=== PATIENT | female | born 1985 | race Hispanic/Latino ===

== ENCOUNTER 2024-12-15 01:29 | Emergency (ER) | payer OTHER ==
--- OUTSIDE RECORDS SUMMARY | 2024-12-15 01:32 | XMS REPORT | Continuity of Care Document ---
Author Name Unknown Address [address] [facility] [address] [place] [address] Organization [facility] [place] Address [address] [facility] [address] [place] [address] Care Team Providers Care Anode Worker Name Role Phone URVASHI TIERNEY Attending Clinician Unavailable FRED SHANE Attending Clinician Unavailable SEAN RAY Attending Clinician Unavailable XIOMARA GONZALES Attending Clinician Jackie vailable LAB90 Attending Clinician Unavailable MD RANDELL Attending Clinician Unavailab ALISA Grimm Attending Clinician Unavailable LAB51 Attending Clinician Unavailable [id number] Attending Clinician Unavailable BRAN LANDON Attending Clinician Unavailable TERESA GORE Attending Clinician UnavailSYL Mercado Attending Clinician Unavailawais huertas Payers Payer Name Policy Type Policy Number Effective Date Expirati on Date Source [facility] [employer] 9 [id number] 2024 00:00:00 [facility] [id number] 2024 00:00:00 [employer] MP [employer] [employer]: HMO ON STANDARD 9 [id number] 2023 00:00:00 Problems Condition Name Condition Details Condition Category Status Onset Date Resolution Date Last Treatment Date Treating Clinician Comments Source Hyperthyro idism Hyperthyro idism Disease Active 04-26 00:00: 00 Zara lee Hypertensi on Hypertensi on Disease Active 01-24 00:00: 00 Zara lee Vitamin D deficiency Vitamin D deficiency Disease Active 05-03 00:00: 00 Zara Seybold - Externa l DM type 2 with diabetic mixed hyperlipid emia (multi HCC) DM type 2 with diabetic mixed hyperlipid emia (multi HCC) Disease Active 04-26 00:00: 00 Zara lee Social History Social Habit Start Date Stop Date Quantity Comments Source Sexual orientation Santiago aguayo Mouinka - External ASSERTION Not Zara Ribera - External Gender identity Latasha vigil [place] - External Alcoholic beverage intake 2024-05-17 00:00:00 2024-05-17 00:00:00 Ex-drinker (finding) Zara Ribera - External Tobacco use and exposure 2024-04-26 00:00:00 2024-04-26 00:00:00 Smokeless tobacco non-user Zara Ribera - External History of Social function 2024-04-10 00:00:00 2024-04-10 00:00:00 Zara Ribera - External Alcohol intake 2023-12-20 00:00:00 2023-12-20 00:00:00 Ex-drinker (finding) Zara Ribera - External Sex 2022-10-20 13:29:27 2022-10-20 13:29:27 Female (finding) Zara Ribera - External Sex assigned at 1985 00:00:00 1985 00:00:00 Zara Ribera - External Smoking Status Start Date Stop Date Source Never smoked tobacco Zara Ribera - External Medications Ordered Medication Name Filled Medication Name Start Date Stop Date Current Medication? Ordering Clinician Indication Dosage Frequency Signature (SIG) Comments Components Source Propylthiou racil 50 MG oral Tablet 2023-10 00:00: 00 Yes [id number] 50mg Q.[id number] 3D TAKE 1 TABLET(50 MG) BY MOUTH THREE TIMES DAILY Zara lee Propylthiou racil 50 MG oral Tablet 2023-10 00:00: 00 Yes [id number] 50mg Q.5D Take 1 tablet (50 mg total) by mouth 2 times daily. Zara lee Atorvastati n Calcium 20 MG oral Tablet 18 00:00: 00 Yes [id number] 3 20mg QD take 1 tablet by mouth every day Zara lee Metformin HCl 1000 MG oral Tablet 06-19 00:00: 00 Yes [id number] 3 TAKE 1 TABLET BY MOUTH IN THE MORNING AND IN THE EVENIGN WITH MEALS Zara lee OZEMPIC (0.25 or 0.5 mg/dose) 2 mg/3 mL SQ Solution Pen-Injecto r 06-19 00:00: 00 08-15 05:59 :00 No [id number] 3 .25mg Q1W Inject 0.25 mg into the skin once a week. Zara lee Dulaglutide (Trulicity) 0.75 MG/0.5ML subcutaneou s Solution Pen-injecto r 05-17 00:00: 00 Yes [id number] 3 .75mg Q1W Inject 0.75 mg into the skin once a week. Zara lee Propylthiou racil 50 MG oral Tablet 05-15 00:00: 00 07-08 00:00 :00 No [id number] 50mg Q.[id number] 3D TAKE 1 TABLET(50 MG) BY MOUTH THREE TIMES DAILY Zara lee hydroCHLORO thiazide 25 MG oral Tablet 04-26 00:00: 00 Yes [id number] 25mg QD TAKE 1 TABLET(25 MG) BY MOUTH DAILY Zara lee Trulicity 0.75 MG/0.5ML subcutaneou s Solution Pen-injecto r 04-26 00:00: 00 05-17 00:00 :00 No [id number] 3 .75mg Q1W Inject 0.75 mg into the skin once a week. Zara lee Propylthiou racil 50 MG oral Tablet 04-16 00:00: 00 Yes [id number] 50mg Q.59775616 [id number] 3D Take 1 tablet (50 mg total) by mouth 3 times daily. Zara lee Propylthiou racil 50 MG oral Tablet 04-15 00:00: 00 Yes 50mg Q.[id number] 3D Take 1 tablet (50 mg total) by mouth 3 times daily. Zara lee Acyclovir 800 MG oral Tablet 03-30 00:00: 00 04-26 00:00 :00 No TAKE 1 TABLET BY MOUTH TWICE DAILY FOR 21 DAYS Zara lee predniSONE (DELTASONE) 20 MG oral tablet 03-29 00:00: 00 04-26 00:00 :00 No 30mg QD Take 1.5 tablets (30 mg total) by mouth daily. Zara lee Dulaglutide (Trulicity) 1.5 MG/0.5ML subcutaneou s Solution Pen-injecto r 03-28 00:00: 00 04-26 00:00 :00 No [id number] 3 1.5mg Q1W Inject 1.5 mg into the skin once a week. Zara lee hydroCHLORO thiazide 25 MG oral Tablet 02-22 00:00: 00 Yes [id number] 25mg QD Take 1 tablet (25 mg total) by mouth daily. Zara lee hydroCHLORO thiazide 12.5 MG oral Capsule 02-15 00:00: 00 Yes [id number] 12.5mg Take 1 capsule (12.5 mg total) by mouth daily. Zara lee Trulicity 1.5 MG/0.5ML subcutaneou s Solution Pen-injecto r 02-15 00:00: 00 03-28 00:00 :00 No [id number] 3 1.5mg Q1W Inject 1.5 mg into the skin once a week. Zara lee Lisinopril 10 MG oral Tablet 01-24 00:00: 00 02-15 00:00 :00 No [id number] 10mg Take 1 tablet (10 mg total) by mouth daily. Zara lee Cholecalcif norm (Vitamin D) 50 MCG (2000 UT) oral Capsule 01-16 00:00: 00 04-26 00:00 :00 No [id number] 2000U QD Take 1 capsule (2,000 units total) by mouth daily. Zara lee Dulaglutide (Trulicity) 0.75 MG/0.5ML subcutaneou s Solution Pen-injecto r -17 00:00: 00 02-15 00:00 :00 No [id number] 3 .75mg Inject 0.75 mg into the skin once a week. Zara lee OZEMPIC (0.25 or 0.5 mg/dose) 2 mg/3 mL SQ Solution Pen-Injecto r 3-20 00:00: 00 02-14 04:59 :00 No [id number] 3 .25mg Inject 0.25 mg into the skin once a week. Zara lee GlipiZIDE 5 MG oral TABLET SR 24 HR 1-17 00:00: 00 Yes [id number] 3 5mg Take 1 tablet (5 mg total) by mouth daily. Zara lee Dulaglutide (Trulicity) 1.5 MG/0.5ML subcutaneou s Solution Pen-injecto r 2022-10 0-17 00:00: 00 12-19 00:00 :00 No [id number] 3 1.5mg Inject 1.5 mg into the skin once a week. Zraa lee Trulicity 1.5 MG/0.5ML subcutaneou s Solution Pen-injecto r 18 00:00: 00 Yes [id number] 3 1.5mg Inject 1.5 mg into the skin once a week. Zara lee Amoxicillin -Pot Clavulanate 875-125 MG oral Tablet -18 00:00: 00 Yes [id number] 1{tbl} Take 1 tablet by mouth 2 times daily. Zara lee Metformin HCl 1000 MG oral Tablet -15 00:00: 00 Yes [id number] 3 TAKE 1 TABLET BY MOUTH IN THE MORNING AND IN THE EVENING WITH MEALS Zara lee Dulaglutide (Trulicity) 0.75 MG/0.5ML subcutaneou s Solution Pen-injecto r 05-23 00:00: 00 06-19 00:00 :00 No [id number] 3 .75mg Inject 0.75 mg into the skin once a week. Zara lee Metformin HCl 1000 MG oral Tablet 05-03 00:00: 00 Yes [id number] 3 1000mg Take 1 tablet (1,000 mg total) by mouth in the morning and 1 tablet (1,000 mg total) in the evening. Take with meals. Zara lee Trulicity 0.75 MG/0.5ML subcutaneou s Solution Pen-injecto r 05-03 00:00: 00 Yes [id number] 3 .75mg Inject 0.75 mg into the skin once a week Zara lee Cholecalcif norm (Vitamin D3) 1.25 MG (45816 UT) oral Capsule 05-03 00:00: 00 01-16 00:00 :00 No [id number] 1{capsu le} Take 1 capsule by mouth once a week Zara lee Atorvastati n Calcium 20 MG oral Tablet 04-26 09:01: 04 04-26 00:00 :00 No 20mg Take 1 tablet (20 mg total) by mouth daily Zara lee Metformin HCl 850 MG oral Tablet 04-26 08:49: 36 Yes 850mg Take 1 tablet (850 mg total) by mouth in the morning and 1 tablet (850 mg total) in the evening. Take with meals. Zara lee Atorvastati n Calcium 20 MG oral Tablet 04-26 00:00: 00 Yes [id number] 3 20mg QD Take 1 tablet (20 mg total) by mouth daily Zara lee Norgestimat e-Ethinyl Estradiol (Tri-Sprint ec) 0.18/0.215/ 0.25 MG-35 MCG oral Tablet 04-26 00:00: 00 04-10 00:00 :00 No [id number] 1{tbl} QD Take 1 tablet by mouth daily Zara Seybold - Externa l Vital Signs Vital Name Observation Time Observation Value Comments S ource Systolic blood pressure 2024-05-17 14:33:00 140 mm[Hg] Zara Seybo ld - External Diastolic blood pressure 2024-05-17 14:33:00 74 mm[Hg] Zara Seybo ld - External Heart rate 2024-05-17 14:33:00 100 /min Kelse y Seybold - External Body temperature 2024-05-17 14:33:00 36.56 Sraita Zara Seybold - External Respiratory rate 2024-05-17 14:33:00 14 /min Zara Seybold - External Body height 2024-05-17 14:33:00 165.1 cm Latahsa ey Seybold - External Body weight 2024-05-17 14:33:00 95.255 kg Latasha ey Seybold - External BMI 2024-05-17 14:33:00 34.95 kg/m2 Latasha ey Seybold - External Systolic blood pressure 2024-05-07 16:32:00 132 mm[Hg] Zara Seybo ld - External Diastolic blood pressure 2024-05-07 16:32:00 84 mm[Hg] Zara Seybo ld - External Heart rate 2024-05-07 16:32:00 91 /min Kelse y Seybold - External Body temperature 2024-05-07 16:32:00 36.83 Sarita Zara Seybold - External Respiratory rate 2024-05-07 16:32:00 18 /min Zara Seybold - External Body height 2024-05-07 16:32:00 165.1 cm Latasha ey Seybold - External Body weight 2024-05-07 16:32:00 94.62 kg Latasha ey Seybold - External BMI 2024-05-07 16:32:00 34.71 kg/m2 Latasha ey Seybold - External Systolic blood pressure 2024-05-06 14:40:00 137 mm[Hg] Zara Seybo ld - External Diastolic blood pressure 2024-05-06 14:40:00 83 mm[Hg] Zara Seybo ld - External Heart rate 2024-05-06 14:40:00 98 /min Kelse y Seybold - External Body temperature 2024-05-06 14:40:00 36.89 Sarita Zara Seybold - External Respiratory rate 2024-05-06 14:40:00 18 /min Zara Seybold - External Body height 2024-05-06 14:40:00 165.1 cm Latasha ey Seybold - External Body weight 2024-05-06 14:40:00 93.441 kg Latasha ey Seybold - External BMI 2024-05-06 14:40:00 34.28 kg/m2 Latasha ey Seybold - External Systolic blood pressure 2024-04-26 14:53:00 128 mm[Hg] Zara Seybo ld - External Diastolic blood pressure 2024-04-26 14:53:00 78 mm[Hg] Zara Seybo ld - External Heart rate 2024-04-26 14:53:00 93 /min Kelse y Seybold - External Body temperature 2024-04-26 14:53:00 36.56 Sarita Zara Seybold - External Respiratory rate 2024-04-26 14:53:00 15 /min Zara Seybold - External Body height 2024-04-26 14:53:00 165.1 cm Latasha ey Seybold - External Body weight 2024-04-26 14:53:00 93.441 kg Latasha ey Seybold - External BMI 2024-04-26 14:53:00 34.28 kg/m2 Latasha ey Seybold - External Systolic blood pressure 2024-04-15 14:53:00 130 mm[Hg] Zara Seybo ld - External Diastolic blood pressure 2024-04-15 14:53:00 80 mm[Hg] Zara Seybo ld - External Heart rate 2024-04-15 14:53:00 94 /min Kelse y Seybold - External Respiratory rate 2024-04-15 14:53:00 16 /min Zara Seybold - External Body height 2024-04-15 14:53:00 165.1 cm Latasha ey Seybold - External Body weight 2024-04-15 14:53:00 91.627 kg Latasha ey Seybold - External BMI 2024-04-15 14:53:00 33.61 kg/m2 Latasha ey Seybold - External Systolic blood pressure 2024-04-10 15:03:00 135 mm[Hg] Zara Seybo ld - External Diastolic blood pressure 2024-04-10 15:03:00 83 mm[Hg] Zara Seybo ld - External Heart rate 2024-04-10 15:03:00 80 /min Kelse y Seybold - External Body temperature 2024-04-10 15:03:00 36.72 Sarita Zara Seybold - External Body height 2024-04-10 15:03:00 165.1 cm Latasha ey Seybold - External Body weight 2024-04-10 15:03:00 93.26 kg Latasha ey Seybold - External BMI 2024-04-10 15:03:00 34.21 kg/m2 Latasha ey Seybold - External Systolic blood pressure 2024-03-28 19:56:00 126 mm[Hg] Zara Seybo ld - External Diastolic blood pressure 2024-03-28 19:56:00 74 mm[Hg] Zara Seybo ld - External Heart rate 2024-03-28 19:56:00 88 /min Kelse y Seybold - External Body temperature 2024-03-28 19:56:00 36.89 Sarita Zara Seybold - External Respiratory rate 2024-03-28 19:56:00 18 /min Zara Seybold - External Body height 2024-03-28 19:56:00 165.1 cm Latasha ey Seybold - External Body weight 2024-03-28 19:56:00 92.987 kg Latasha ey Seybold - External BMI 2024-03-28 19:56:00 34.11 kg/m2 Latasha ey Seybold - External Oxygen saturation in Arterial blood by Pulse oximetry 2024-03-28 19:56:00 99 /min Zara Seybo ld - External Systolic blood pressure 2024-02-28 15:05:00 137 mm[Hg] Zara Seybo ld - External Diastolic blood pressure 2024-02-28 15:05:00 84 mm[Hg] Zara Seybo ld - External Heart rate 2024-02-28 15:05:00 85 /min Kelse y Seybold - External Respiratory rate 2024-02-28 15:05:00 16 /min Zara Seybold - External Body height 2024-02-28 15:05:00 165.1 cm Latasha ey Seybold - External Body weight 2024-02-28 15:05:00 91.173 kg Latasha ey Seybold - External BMI 2024-02-28 15:05:00 33.45 kg/m2 Latasha ey Seybold - External Systolic blood pressure 2024-02-16 16:03:00 146 mm[Hg] Zara Seybo ld - External Diastolic blood pressure 2024-02-16 16:03:00 84 mm[Hg] Zara Seybo ld - External Heart rate 2024-02-16 16:03:00 81 /min Kelse y Seybold - External Body temperature 2024-02-16 16:03:00 36.28 Sarita Zara Seybold - External Body height 2024-02-16 16:03:00 165.1 cm Latasha ey Seybold - External Body weight 2024-02-16 16:03:00 90.266 kg Latasha ey Seybold - External BMI 2024-02-16 16:03:00 33.12 kg/m2 Latasha ey Seybold - External Systolic blood pressure 2024-01-17 15:55:00 144 mm[Hg] Zara Seybo ld - External Diastolic blood pressure 2024-01-17 15:55:00 68 mm[Hg] Zara Seybo ld - External Heart rate 2024-01-17 15:50:00 97 /min Kelse y Seybold - External Body temperature 2024-01-17 15:50:00 36.61 Sarita Zara Seybold - External Respiratory rate 2024-01-17 15:50:00 15 /min Zara Seybold - External Body height 2024-01-17 15:50:00 165.1 cm Latasha ey Seybold - External Body weight 2024-01-17 15:50:00 92.08 kg Latasha ey Seybold - External BMI 2024-01-17 15:50:00 33.78 kg/m2 Latasha ey Seybold - External Systolic blood pressure 2023-12-20 14:06:00 130 mm[Hg] Zara Seybo ld - External Diastolic blood pressure 2023-12-20 14:06:00 78 mm[Hg] Zara Seybo ld - External Heart rate 2023-12-20 14:06:00 94 /min Kelse y Seybold - External Body temperature 2023-12-20 14:06:00 37.22 Sarita Zara Seybold - External Respiratory rate 2023-12-20 14:06:00 18 /min Zara Seybold - External Body height 2023-12-20 14:06:00 165.1 cm Latasha ey Seybold - External Body weight 2023-12-20 14:06:00 93.214 kg Latasha ey Seybold - External BMI 2023-12-20 14:06:00 34.20 kg/m2 Latasha ey Seybold - External Oxygen saturation in Arterial blood by Pulse oximetry 2023-12-20 14:06:00 99 /min Zara Seybo ld - External Systolic blood pressure 2023-10-18 15:19:00 132 mm[Hg] Zara Seybo ld - External Diastolic blood pressure 2023-10-18 15:19:00 70 mm[Hg] Zara Seybo ld - External Heart rate 2023-10-18 15:19:00 90 /min Kelse y Seybold - External Body temperature 2023-10-18 15:19:00 36.17 Sarita Zara Seybold - External Respiratory rate 2023-10-18 15:19:00 14 /min Zara Seybold - External Body height 2023-10-18 15:19:00 165.1 cm Latasha ey Seybold - External Body weight 2023-10-18 15:19:00 93.441 kg Latasha ey Seybold - External BMI 2023-10-18 15:19:00 34.28 kg/m2 Latasha ey Seybold - External Systolic blood pressure 2023-07-18 15:01:00 144 mm[Hg] Zara Seybo ld - External Diastolic blood pressure 2023-07-18 15:01:00 74 mm[Hg] Zara Seybo ld - External Heart rate 2023-07-18 15:01:00 96 /min Kelse y Seybold - External Body temperature 2023-07-18 15:01:00 36.11 Sarita Zara Seybold - External Respiratory rate 2023-07-18 15:01:00 15 /min Zara Seybold - External Body height 2023-07-18 15:01:00 165.1 cm Latasha ey Seybold - External Body weight 2023-07-18 15:01:00 95.709 kg Latasha ey Seybold - External BMI 2023-07-18 15:01:00 35.11 kg/m2 Latasha ey Seybold - External Systolic blood pressure 2023-06-19 15:03:00 144 mm[Hg] Zara Seybo ld - External Diastolic blood pressure 2023-06-19 15:03:00 76 mm[Hg] Zara Seybo ld - External Heart rate 2023-06-19 15:03:00 107 /min Kelse y Seybold - External Body temperature 2023-06-19 15:03:00 36.56 Sarita Zara Seybold - External Respiratory rate 2023-06-19 15:03:00 14 /min Zara Seybold - External Body height 2023-06-19 15:03:00 165.1 cm Latasha ey Seybold - External Body weight 2023-06-19 15:03:00 97.523 kg Latasha ey Seybold - External BMI 2023-06-19 15:03:00 35.78 kg/m2 Latasha ey Seybold - External Systolic blood pressure 2023-05-18 19:55:00 161 mm[Hg] Zara Seybo ld - External Diastolic blood pressure 2023-05-18 19:55:00 82 mm[Hg] Zara Seybo ld - External Heart rate 2023-05-18 19:55:00 80 /min Kelse y Seybold - External Body temperature 2023-05-18 19:55:00 36.61 Sarita Zara Seybold - External Respiratory rate 2023-05-18 19:55:00 15 /min Zara Seybold - External Body height 2023-05-18 19:55:00 165.1 cm Latasha ey Seybold - External Body weight 2023-05-18 19:55:00 99.791 kg Latasha ey Seybold - External BMI 2023-05-18 19:55:00 36.61 kg/m2 Latasha vigil Seybold - External Oxygen saturation in Arterial blood by Pulse oximetry 2023-05-18 19:55:00 99 /min Zara Clinton ld - External Systolic blood pressure 2023-04-26 13:44:00 116 mm[Hg] Zara Clinton ld - External Diastolic blood pressure 2023-04-26 13:44:00 88 mm[Hg] Zara Clinton ld - External Heart rate 2023-04-26 13:44:00 66 /min Nevaeh y Mounika - External Body temperature 2023-04-26 13:44:00 36.72 Sarita Zara Ribera - External Respiratory rate 2023-04-26 13:44:00 16 /min Zara Ribera - External Body height 2023-04-26 13:44:00 165.1 cm Latasha vigil Seybold - External Body weight 2023-04-26 13:44:00 99.247 kg Latasha vigil Seybold - External BMI 2023-04-26 13:44:00 36.41 kg/m2 Latasha ey Seybold - External Encounters Start Date/Time End Date/Time Encounter Type Admission Type Attending [facility] Care Department Encounter ID Source 2024-12-31 09:30:00 2024-12-31 09:30:00 Outpatient URVASHI TIERNEY [id number] Zara Ribera 2024-12-10 08:30:00 2024-12-10 08:30:00 Outpatient URVASHI TIERNEY [id number] Zara Ribera 2024-12-03 10:00:00 2024-12-03 10:00:00 Outpatient FRED SHANE [id number] Zara maurilio 2024-11-18 09:00:00 2024-11-18 09:00:00 Outpatient URVASHI TIERNEY [id number] Zara Ribera 2024-10-23 11:30:00 2024-10-23 11:30:00 Outpatient SEAN RAY [id number] Zara Ribera 2024-10-23 11:30:00 2024-10-23 11:30:00 Outpatient FLOR[id number] [facility] 2024-09-02 09:45:00 2024-09-02 09:45:00 Outpatient FLOR, SEAN ZARA CLANCY [id number] [facility] 2024-08-23 10:15:00 2024-08-23 10:15:00 Outpatient FLOR, SEAN ZARA CLANCY [id number] [facility] 2024-08-22 00:00:00 2024-08-22 00:00:00 Outpatient FLOR, SEAN ZARA CLANCY [id number] [facility] 2024-08-21 16:15:00 2024-08-21 16:15:00 Outpatient [facility], XIOMARA CLANCY [id number] [facility] 2024-08-20 08:35:00 2024-08-20 08:35:00 Outpatient LAB90 [facility]ARA CLANC[facility] [id number] [facility] 2024-07-31 00:00:00 2024-07-31 00:00:00 Outpatient MD ZARA IBRAHIM [id number] [facility] 2024-07-25 00:00:00 2024-07-25 00:00:00 Outpatient FLOR, KARLAPIEDAD CLANCY [id number] [facility] 2024-07-23 10:00:00 2024-07-23 10:00:00 Outpatient VU, ALISA CLANCY [id number] [facility] 2024-07-08 10:00:00 2024-07-08 10:00:00 Outpatient FLOR, SEAN CLANCY [id number] [facility] 2024-06-19 00:00:00 2024-06-19 00:00:00 Outpatient NIALL, URVASHI CLANCY [id number] Zara Seybold 2024-06-18 00:00:00 2024-06-18 00:00:00 Outpatient URVASHI TIERNEY [id number] Zara Seybold 2024-06-13 00:00:00 2024-06-13 00:00:00 Outpatient FLOR, SEAN CLANCY [id number] Zara Seybold 2024-06-12 11:20:00 2024-06-12 11:20:00 Outpatient ZARA CLANCY [id number] Zara Seybold 2024-06-12 10:00:00 2024-06-12 10:00:00 Outpatient ZARA CLANCY [id number] Zara Seybold 2024-06-12 10:00:00 2024-06-12 10:00:00 Outpatient ZARA CLANCY [id number] Zara Seybold 2024-06-12 09:45:00 2024-06-12 09:45:00 Outpatient ZARA CLANCY [id number] Zara Seybold 2024-06-12 00:00:00 2024-06-12 00:00:00 Outpatient SEAN RAY ZARA CLANCY [id number] Zara Seybold 2024-06-07 08:05:00 2024-06-07 08:05:00 Outpatient LAB90 ZARA CLANCY [id number] Zara Seybold 2024-05-30 00:00:00 2024-05-30 00:00:00 Outpatient ZARA CLANCY [id number] Zara Seybold 2024-05-28 00:00:00 2024-05-28 00:00:00 Outpatient MD ZARA IBRAHIM [id number] Zara Seybold 2024-05-21 13:45:00 2024-05-21 13:45:00 Outpatient ZARA CLANCY [id number] Zara Seybold 2024-05-21 13:30:00 2024-05-21 13:30:00 Outpatient ZARA CLANCY [id number] Zara Seybold 2024-05-20 00:00:00 2024-05-20 00:00:00 Outpatient ZARA CLANCY [id number] Zara Seybold 2024-05-17 10:00:00 2024-05-17 10:00:00 Outpatient URVASHI TIERNEY [id number] Zara Seybold 2024-05-17 00:00:00 2024-05-17 00:00:00 Outpatient XI[facility]ARA JUARES [id number] [facility] 2024-05-15 00:00:00 2024-05-15 00:00:00 Outpatient SEAN RAY ZARA CLANCY [id number] Zara Seybold 2024-05-07 11:15:00 2024-05-07 11:15:00 Outpatient [facility], XIOMARA ZARA CLANCY [id number] Zara Seybold 2024-05-07 08:45:00 2024-05-07 08:45:00 Outpatient [facility], XIOMARA ZARA ZARA [id number] [facility] 2024-05-06 10:15:00 2024-05-06 10:15:00 Outpatient FLORSEAN ZARA CLANCY [id number] [facility] 2024-04-30 09:30:00 2024-04-30 09:30:00 Outpatient LAB90 ZARA CLANCY [id number] [facility] 2024-04-29 00:00:00 2024-04-29 00:00:00 Outpatient SEAN RAY ZARA CLANCY [id number] [facility] 2024-04-26 10:50:00 2024-04-26 10:50:00 Outpatient LAB90 ZARA CLANCY [id number] [facility] 2024-04-26 10:00:00 2024-04-26 10:00:00 Outpatient NIALL URVASHI CLANCY [id number] [facility] 2024-04-25 00:00:00 2024-04-25 00:00:00 Outpatient DEISIAnish URVASHI CLANCY [id number] Zara Seybold 2024-04-22 10:30:00 2024-04-22 10:30:00 Outpatient ZARA CLANCY [id number] Zara Seybold 2024-04-19 00:00:00 2024-04-19 00:00:00 Outpatient SEAN RAY ZARA CLANCY [id number] Zara Seybold 2024-04-16 00:00:00 2024-04-16 00:00:00 Outpatient FLORKARLAPIEDAD CLANCY [id number] Zara Seybold 2024-04-15 11:15:00 2024-04-15 11:15:00 Outpatient LAB51 ZARA CLANCY [id number] Zara Seybold 2024-04-15 10:15:00 2024-04-15 10:15:00 Outpatient SEAN RAY ZARA CLANCY [id number] Zara Seybold 2024-04-10 10:50:00 2024-04-10 10:50:00 Outpatient [id number] ZARA CLANCY [id number] Zara Seybold 2024-04-10 09:45:00 2024-04-10 09:45:00 Outpatient [facility] ZARA CLANCY [id number] Zara Seybold 2024-04-01 00:00:00 2024-04-01 00:00:00 Outpatient BRAN LANDON ZARA CLANCY [id number] Zara Seybold 2024-04-01 00:00:00 2024-04-01 00:00:00 Outpatient [facility]ASHI TIERNEY [id number] [facility] 2024-03-28 15:45:00 2024-03-28 15:45:00 Outpatient LAB90 ZARA CLANCY [id number] Zara Seybold 2024-03-28 15:00:00 2024-03-28 15:00:00 Outpatient URVASHI TIERNEY [id number] [facility] 2024-03-21 00:00:00 2024-03-21 00:00:00 Outpatient MD ZARA IBRAHIM [id number] Zara Seybold 2024-03-20 14:15:00 2024-03-20 14:15:00 Outpatient ZARA CLANCY [id number] Zara Seybold 2024-03-13 08:35:00 2024-03-13 08:35:00 Outpatient LAB90 ZARA CLANCY [id number] Zara Seybold 2024-03-04 00:00:00 2024-03-04 00:00:00 Outpatient MD ZARA IBRAHIM [id number] Zara Seybchandni 2024-02-28 11:30:00 2024-02-28 11:30:00 Outpatient [id number] ZARA OQUENDOSEY [id number] Zara Ribera 2024-02-28 10:45:00 2024-02-28 10:45:00 Outpatient VASILERED CORREIAXIOMARA ZARA CLANCY [id number] Zara Beardybchandni 2024-02-24 00:00:00 2024-02-24 00:00:00 Outpatient HUNDL, URVASHI CLANCY [id number] Zara Ribera 2024-02-23 12:00:00 2024-02-23 12:00:00 Outpatient SOFÍATERESA ZARA CLANCY [id number] Zara Beardybchandni 2024-02-23 00:00:00 2024-02-23 00:00:00 Outpatient HUNDL, [facility]ASH[facility] CLANC[facility] [id number] [facility] 2024-02-16 11:45:00 2024-02-16 11:45:00 Outpatient LABShakira ZARA CLANCY [id number] Zara Ribera 2024-02-16 11:00:00 2024-02-16 11:00:00 Outpatient HUNDL, URVASHI CLANCY [id number] Zara Ribera 2024-01-24 00:00:00 2024-01-24 00:00:00 Outpatient HUNDL, U[facility]ASHI CLANCY [id number] [facility]24-01-17 11:00:00 2024-01-17 11:00:00 Outpatient HUNDAnish, URVASHI CLANCY [id number] Zara Beardybchandni 2024-01-08 00:00:00 2024-01-08 00:00:00 Outpatient HUNDL, URVASHI CLANCY [id number] [facility] 2023-12-20 09:30:00 2023-12-20 09:30:00 Outpatient HUNDL, URVASHI CLANCY [id number] [facility] 2023-11-27 11:03:51 2023-11-27 11:03:51 Outpatient [facility] [id number] Nish Fitch 2023-10-24 10:15:00 2023-10-24 10:15:00 Outpatient SYL SINCLAIR [id number] Zaranichole Ribera 2023-10-18 09:30:00 2023-10-18 09:30:00 Outpatient HUNDL, URVASHI ZARA CLANCY [id number] Zara Ribera 2023-10-13 09:00:00 2023-10-13 09:00:00 Outpatient LAB90 ZARA CLANCY [id number] Zara Ribera 2023-08-03 00:00:00 2023-08-03 00:00:00 Outpatient PREZAS, BRAN ZARA CLANCY [id number] Zara Ribera 2023-08-01 00:00:00 2023-08-01 00:00:00 Outpatient HUNDL, URVASHI CLANCY [id number] Zara Ribera 2023-07-25 08:00:00 2023-07-25 08:00:00 Outpatient VU, ALISA CLANCY [id number] Zara Ribera 2023-07-18 10:30:00 2023-07-18 10:30:00 Outpatient HUNDL, URVASHI CLANCY [id number] [facility] 2023-07-12 08:40:00 2023-07-12 08:40:00 Outpatient LAB90 ZARA CLANCY [id number] Zara Ribera 2023-06-19 11:15:00 2023-06-19 11:15:00 Outpatient LAB90 ZARA CLANCY [id number] Zara Ribera 2023-06-19 10:30:00 2023-06-19 10:30:00 Outpatient HUNDL, URVASHI CLANCY [id number] Zara Ribera 2023-06-13 00:00:00 2023-06-13 00:00:00 Outpatient HUNDL, URVASHI CLANCY [id number] Zara Beardybchandni 2023-05-19 00:00:00 2023-05-19 00:00:00 Outpatient HUNDAnish, URVASHI CLANCY [id number] Zara ybchandni 2023-05-18 15:45:00 2023-05-18 15:45:00 Outpatient LAB90 ZARA CLANCY [id number] Zara ybchandni 2023-05-18 15:00:00 2023-05-18 15:00:00 Outpatient URVASHI TIERNEY [id number] Zara Ribera 2023-05-18 00:00:00 2023-05-18 00:00:00 Outpatient URVASHI ITERNEY [id number] Zara Ribera 2023-05-03 00:00:00 2023-05-03 00:00:00 Outpatient URVASHI TIERNEY [id number] Zara Ribera 2023-04-26 09:45:00 2023-04-26 09:45:00 Outpatient LAB90 ZARA CLANCY [id number] Zara Ribera 2023-04-26 09:00:00 2023-04-26 09:00:00 Outpatient URVASHI TIERNEYSEY [id number] Zara Beardsaechandni Notes Date/Time Note Provider Source 2024-05-17 09:35:08 Chief Complaint Patient presents with Diabetes Diabetic follow up and lab results Khloe Lipscomb MA II [facility] 2024-05-07 11:33:10 Chief Complaint Patient presents with OTHER Discuss u/s results CHELI Bravo [facility] 2024-04-26 09:57:16 Chief Complaint Patient presents with Physical Patient is fasting. No other issues to discuss Khloe Lipscomb MA II T [facility] 2024-04-15 09:53:45 Chief Complaint Patient presents with Thyroid Problem Follow-up [facility] 2024-04-10 09:58:40 PATIENT IS IN ROOM: 313 PHQ questionnaire score: 0 ERNESTO questionnaire score: 0 No Known Allergies Patient agreed to STD testing today. Patient has no complaints or concerns for today's visit. control: none LMP Dates from Last 1 Encounters: LMP: 01/10/2024 No results found for: "PAP" [facility] 2024-03-28 15:00:05 Chief Complaint Patient presents with Follow-up Lab work was done and thyroid was elevated .Yoko Cadet LVN [facility] 2024-02-28 10:06:12 Chief Complaint Patient presents with Infertility Pt got referred by her PCP to speak about infertility. CHELI Velasquez [facility] 2024-02-16 11:05:20 Chief Complaint Patient presents with Diabetes Diabetic follow up Blood Pressure Follow up on blood pressure Khloe Lipscomb MA II Khloe Lipscomb MA, II [facility] 2024-01-17 10:53:13 Chief Complaint Patient presents with Diabetes 4 week diabetic follow up Khloe Lipscomb MA II Khloe Lipscomb MA, II [facility] 2023-12-20 09:11:20 Chief Complaint Patient presents with Follow-up 2 month follow up Diabetes. Blood sugars have been averaging in 's Yoko Cadet LVN [facility] 2023-10-18 09:21:43 Chief Complaint Patient presents with Diabetes Diabetic follow up Khloe Lipscomb MA II [facility] Khloe Lipscomb MA, II [facility] 2023-06-19 10:06:07 Formatting of this n ote is different from the original. Chief Complaint Patient presents with Diabetes Follow up on diabetes Dental Problem Toothache that started over the weekend Khloe Lipscomb MA II Khloe Lipscomb MA, II [facility] 2023-04-26 08:49:38 Formatting of this n ote is different from the original. Chief Complaint Patient presents with Physical Krystle Kaur CMA I [facility]
[2024-12-15 03:13] LABS: Absolute Basophils 0.1 K/uL (0-0.5); Absolute Lymphocytes (CBC) 2.6 K/uL (0.7-4.9); Absolute Monocytes 0.8 K/uL (0.1-1.3); Absolute Neutrophil 13.7 K/uL (1.8-8.0); Basophils % 0.4 % (0-1.3); Eosinophils % 0.2 % (0-4.4); Hematocrit 37.9 % (36.0-45.0); Hemoglobin 12.4 g/dL (12.0-15.0); MCH 26.5 pg (27.0-35.0); MCHC 32.8 g/dL (32.0-36.0); MCV 80.7 fL (80-100); MPV 9.2 fL (7.6-11.3); Monocytes % 4.5 % (3.3-12.3); Neutrophils % 79.9 % (41.7-73.7); Platelets 323 thou/uL (152-406); RBC Red Blood Cell Count 4.69 M/uL (3.86-4.86); Red Cell Distribution Width 15.1 % (12.1-15.2)
[2024-12-15 04:17] LABS: Anion Gap 12.8 mEq/L (5.0-15.0)
--- NOTE | 2024-12-15 04:29 | RAD REPORT ---
PROCEDURE: US , Transvaginal CLINICAL INDICATION: The patient is 39 years old and is Female; 6w preg, vaginal bleeding Bed: TECHNIQUE: Real-time transvaginal obstetrical ultrasound of the maternal pelvis and a first trimester with image documentation. Transvaginal imaging was used for better evaluation of the fetus and adnexa. COMPARISON: No relevant prior studies available. FINDINGS: GESTATION: No IUP identified. PLACENTA/AMNIOTIC FLUID: Cannot be adequately evaluated due to the early gestational age. UTERUS/CERVIX: Patient appears to have duplicated and endometrial cavities, with heterogenous avasc ular material demonstrated within the distended left-sided cervical canal. Right-sided endometrium measures up to 0.5 cm in thickness. Trace anechoic fluid demonstrated in the right cervical canal. Left-sided endometrium is thickened, measuring up to 1.8 cm, with heterogenous appearance. No myometrial mass. The uterus measures 9.3 x 4.3 x 6.7 cm. OVARIES: Left ovary is nonvisualized. No mass. The right ovary measures 2.4 x 3.3 x 2.5 cm with a volume of 10.4 ml. FREE FLUID: No free fluid. IMPRESSION: 1. 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 2. No IUP identified. Thickened heterogenous appearance of the left endometrium and heterogenous ma terial in the left cervical canal, favoring blood products versus products of conception. Correlation with beta hCG levels recommended. If positive, findings favor a failed , though cannot exclude a nonvisualized ectopic . Recommend further characterization with short-term follow-up pelvic ultrasound and trending beta hCG levels. Electronically signed by: Sascha Stauffer MD 12/15/2024 04:21 AM CDT Due to temporary technical issues with the PACS/CheckiO reporting system, reports are being sign ed by the in-house radiologist without review as a courtesy to ensure prompt reporting the interpreting rad iologist is fully responsible for the content of the report. Transcribed Date/Time: 12/15/2024 4:29 AM
[2024-12-15 04:33] LABS: Potassium 3.8 mEq/L (3.5-5.1)
--- NOTE | 2024-12-15 04:44 | ER ---
Nurse's Notes [facility] Name: Laura Gongora Age: 39 yrs Sex: Female : 1985 Arrival Date: 12/15/2024 Time: 01:29 Bed 13 Private MD: Diagnosis: Concern for Miscarriage Presentation: 12/15 01:50 Chief complaint: Patient states: heavy vaginal bleeding since 2200. Coronavirus screen: lg3 Client denies travel out of the [place] in the last 14 days. At this time, the client does not indicate any symptoms associated with coronavirus-19. Ebola Screen: No symptoms or risks identified at this time. Initial Sepsis Screen: Does the patient meet any 2 criteria? No. Patient's initial sepsis screen is negative. Does the patient have a suspected source of infection? No. Patient's initial sepsis screen is negative. Risk Assessment: Do you want to hurt yourself or someone else? Patient reports no desire to harm self or others. Onset of symptoms was December 14, 2024. 01:50 Method Of Arrival: Ambulatory lg3 01:50 Acuity: JUNG 3 lg3 Triage Assessment: 03:11 General: Appears in no apparent distress. comfortable, Behavior is calm, cooperative. lg3 Pain: Denies pain. EENT: No deficits noted. No signs and/or symptoms were reported regarding the EENT system. Neuro: No deficits noted. Arita Agitation-Sedation Scale (RASS): 0 - Alert and Calm Level of Consciousness is awake, alert, obeys commands, Oriented to person, place, time, situation. Cardiovascular: No deficits noted. Denies chest pain, shortness of breath, Capillary refill < 3 seconds Clubbing of nail beds is absent JVD is absent Patient's skin is warm and dry. Respiratory: No deficits noted. Airway is patent Respiratory effort is even, unlabored, Respiratory pattern is regular, symmetrical. GI: No deficits noted. Abdomen is round non-distended, Patient currently denies pain. : Reports vaginal bleeding that is heavy flow. Derm: No deficits noted. No signs and/or symptoms reported regarding the dermatologic system. Skin is intact, is healthy with good turgor, Skin is dry, Skin is normal, Skin temperature is warm. Musculoskeletal: No deficits noted. No signs and/or symptoms reported regarding the musculoskeletal system. Circulation, motion, and sensation intact. Range of motion: intact in all extremities. 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 - Infectious Disease History:: Denies. - Social history:: Smoking status: Patient denies any tobacco usage or history of. Screenin:14 [facility] ED Fall Risk Assessment (Adult) History of falling in the last 3 months, lg3 including since admission No falls in past 3 months (0 pts) Confusion or Disorientation No (0 pts) Intoxicated or Sedated No (0 pts) Impaired Gait No (0 pts) Mobility Assist Device Used No (0 pt) Altered Elimination No (0 pt) Score/Fall Risk Level 0 - 2 = Low Risk Oriented to surroundings, Maintained a safe environment, Educated pt \T\ family on fall prevention, incl call for assistance when getting out of bed, Assessed \T\ reinforced patient's understanding of fall precautions. Abuse screen: Denies threats or abuse. Denies injuries from another. Nutritional screening: No deficits noted. Tuberculosis screening: No symptoms or risk factors identified. Assessment: 03:14 General: see triage assessment. lg3 04:30 Reassessment: Patient appears in no apparent distress at this time. No changes from cp4 previously documented assessment. Patient and/or family updated on plan of care and expected duration. Pain level reassessed. Patient is alert, oriented x 3, equal unlabored respirations, skin warm/dry/pink. Vital Signs: 01:50 BP 132 / 69; Pulse 106; Resp 19 S; Temp 98.5(O); Pulse Ox 99% on R/A; Weight 106.59 kg lg3 (R); Height 5 ft. 4 in. (R); Pain 0/10; 01:50 Body Mass Index 40.34 (106.59 kg, 162.56 cm) lg3 01:50 Pain Scale: Adult lg3 ED Course: 01:30 Patient arrived in ED. jj6 02:03 Matty Weaver MD is Attending Physician. ec2 02:34 Transvaginal OB US In Process Unspecified. EDMS 03:11 Triage completed. lg3 03:11 Arm band placed on right wrist. lg3 03:14 Patient has correct armband on for positive identification. lg3 03:14 Initial lab(s) drawn, by ED staff, sent to lab. Patient maintains SpO2 saturation lg3 greater than 95% on room air. 04:16 Maribel Anthony is Primary Nurse. cp4 05:14 Provided Education on: vaginal bleeding. cp4 05:14 No provider procedures requiring assistance completed. Patient did not have IV access cp4 during this emergency room visit. Administered Medications: No medications were administered Medication: 03:14 VIS not applicable for this client. lg3 Outcome: 04:44 Discharge ordered by MD. ec2 05:14 Discharged to home ambulatory, cp4 05:14 Condition: stable 05:14 Discharge instructions given to patient, family, Instructed on discharge instructions, follow up and referral plans. Demonstrated understanding of instructions, follow-up care, 05:15 Patient left the ED. cp4 Signatures: Dispatcher [employer] Gaby Conteh RN RN lg3 Sandhya Cardona jj6 Matty Weaver MD MD ec2 Maribel Anthony cp4 Corrections: (The following items were deleted from the chart) 02:46 02:44 Chief complaint: lg3 lg3
--- NOTE | 2024-12-15 04:44 | EDPHYS ---
Physician Documentation [facility] Name: Laura Gongora Age: 39 yrs Sex: Female : 1985 Arrival Date: 12/15/2024 Time: 01:29 Bed 13 Private MD: ED Physician Matty Weaver HPI: 12/15 04:33 This 39 yrs old Female presents to ER via Ambulatory with complaints of ec2 Vaginal Bleeding, EST GESTATION 6WKS. 04:33 Patient with vaginal bleeding in the setting of of approximately 6 weeks.. 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 - Infectious Disease History:: Denies. - Social history:: Smoking status: Patient denies any tobacco usage or history of. ROS: 04:34 Constitutional: as per hpi ec2 Exam: 04:34 Constitutional: GEN: NAD Head: atraumatic Eyes: EOMI Ears: External ears are ec2 normal. CV: regular rate LUNGS: no respiratory distress ABD: non-distended SKIN: no evidence of rashes MSK: no evidence of trauma Vital Signs: 01:50 BP 132 / 69; Pulse 106; Resp 19 S; Temp 98.5(O); Pulse Ox 99% on R/A; Weight 106.59 kg lg3 (R); Height 5 ft. 4 in. (R); Pain 0/10; 01:50 Body Mass Index 40.34 (106.59 kg, 162.56 cm) lg3 01:50 Pain Scale: Adult lg3 MDM: 03:36 Medical Screening Exam initiated ec2 04:34 Data reviewed: vital signs, nurses notes. ED course: Patient arrives today for ec2 evaluation of vaginal bleeding in the setting of approximately 6 weeks of . Examination is unrevealing. CBC shows leukocytosis. hCG at 22,000. BMP is reassuring. Patient is a positive. Will forego RhoGAM. Ultrasound shows no IUP with blood products versus conception noted.. 04:43 ED course: I instructed the patient to return in 48 hours for repeat hCG. Patient ec2 expressed understanding, instructed her that my concern is for miscarriage however possible still early .. 12/15 01:33 Order name: CBC with Diff; Complete Time: 04:33 ec2 12/15 01:33 Order name: HCG-Quantitative; Complete Time: 04:33 ec2 12/15 01:33 Order name: Abo/rh Typing; Complete Time: 04:33 ec2 12/15 01:33 Order name: BMP; Complete Time: 04:33 ec2 12/15 01:33 Order name: Transvaginal OB US; Complete Time: 04:33 ec2 Administered Medications: No medications were administered Disposition Summary: 12/15/24 04:44 Discharge Ordered Condition: Stable ec2 Diagnosis - Concern for Miscarriage ec2 Followup: ec2 - With: Private Physician - When: - Reason: Re-evaluation by your physician Discharge Instructions: - Discharge Summary Sheet ec2 - Incomplete Miscarriage ec2 Forms: - Medication Reconciliation Form ec2 - Antibiotic Education ec2 - Prescription Opioid Use ec2 - Patient Portal Instructions ec2 - Leadership Thank You Letter ec2 Signatures: Dispatcher [employer] Gaby Conteh RN RN lg3 Matty Weaver MD MD ec2
[2024-12-15 05:20] VITALS: BP 132/69; TEMP 98.5; O2SAT 99
== END 2024-12-15 05:15 | disposition home or self-care (01) ==
LOC: ER 01:29
DX: O20.9 Hemorrhage in early pregnancy, unspecified (principal); O24.911 Unspecified diabetes mellitus in pregnancy, first trimester; Z3A.01 Less than 8 weeks gestation of pregnancy
CPT/HCPCS: 36415; 76817; 80048; 84702; 85025; 86900; 86901; 99283